=== PATIENT | female | born 1995 | race Caucasian/White ===

== ENCOUNTER 2021-02-09 19:50 | Emergency (ER) | payer MEDICAID, SELFPAY ==
[~2021-02-09] VITALS: Ht 157.5 cm; Wt 56.8 kg
[~2021-02-09 19:50] MED LIST: IBUP-1506 PO
[2021-02-09 20:00] VITALS: BP 138/73
== END 2021-02-09 20:41 | disposition left against medical advice (07) ==
LOC: EMS 19:52
DX: R07.81 Pleurodynia (principal); Z53.21 Procedure and treatment not carried out due to patient leaving prior to being seen by health care provider